=== PATIENT | female | born 1950 | race Hispanic/Latino ===

== ENCOUNTER 2024-12-05 19:15 | Emergency (ER) | payer MEDICARE, MEDICAID ==
[~2024-12-05] VITALS: Ht 162.6 cm; Wt 71.2 kg
--- NOTE | 2024-12-05 19:19 | NUR ---
UA CUP PROVIDED
[2024-12-05 20:01] LABS: BASOPHILS # (AUTO) 0.03 K/uL (0.00-0.20); BASOPHILS % (AUTO) 0.6 % (0.0-5.0); EOSINOPHILS # (AUTO) 0.08 K/uL (0.00-0.70); EOSINOPHILS % (AUTO) 1.7 % (0.0-8.0); HEMATOCRIT 29.4 % (36-48); IMMATURE GRANULOCYTE ABSOLUTE 0.01 K/uL (0-1); LYMPHOCYTES # (AUTO) 1.6 K/uL (1.0-4.8); MEAN CORPUSCULAR HEMOGLOBIN 30.7 pg (27.0-33.0); MEAN CORPUSCULAR VOLUME 90.2 fL (79-99); MONOCYTES # (AUTO) 0.4 K/uL (0.1-1.0); NEUTROPHILS # (AUTO) 2.6 K/uL (1.8-7.7); NEUTROPHILS % (AUTO) 54.5 % (40.0-77.0); PLATELET COUNT (AUTO) 166 K/uL (130-400); RED BLOOD CELL COUNT(AUTO) 3.26 MIL/uL (4.00-5.50); RED CELL DISTRIBUTION WIDTH 12.5 % (11.0-15.5); WHITE BLOOD COUNT (AUTO) 4.8 K/uL (4.8-10.8)
[2024-12-05] MEDS: ketOROlac 15MG/ML VIAL (15MG/ML) IV ONE (20:03)
[2024-12-05] MEDS: 0.9%NACL 1000ML 1,000 ML IV ONE (20:03)
[2024-12-05] MEDS: acetaMINOPHEN 500 MG TABLET PO ONE (20:03)
[2024-12-05 20:13] LABS: CREATININE 1.3 mg/dL (0.5-1.0); POTASSIUM 4.5 mmol/L (3.5-5.1)
--- NOTE | 2024-12-05 20:31 | EKG ---
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
[2024-12-05 20:41] LABS: ADD UA MICROSCOPIC YES; APPEARANCE,URINE CLEAR (CLEAR); BILIRUBIN,URINE NEGATIVE (NEGATIVE); COLOR,URINE COLORLESS (YELLOW); GLUCOSE, URINE (UA) NEGATIVE (NEGATIVE); KETONES,URINE NEGATIVE (NEGATIVE); LEUKOCYTE ESTERASE ,URINE NEGATIVE Leu/uL (NEGATIVE); NITRATE,URINE NEGATIVE (NEGATIVE); PROTEIN,URINE NEGATIVE (NEGATIVE); UROBILINOGEN,URINE 0.2 mg/dL (0.2-1.0)
--- NOTE | 2024-12-05 20:48 | HMCIMG ---
CT ABDOMEN/PELVIS W/O CONTRAST HISTORY: Renal stones COMPARISON: 01/04/2017 TECHNIQUE: Multiple sequential axial images of the abdomen and pelvis were obtained from the dome of the diaphragm through symphysis pubis. Patient was not given contrast through intravenous route. Oral contrast was not given. FINDINGS: No pleural effusion is seen bilaterally. There is no evidence of parenchymal disease or pulmonary nodule of the visualized lower lungs. Degenerative changes of the thoracolumbar spine are present. The heart is not enlarged. The liver measures 16 cm. Post cholecystectomy changes are seen. There is diverticulosis. The liver, spleen, adrenal glands and pancreas are unremarkable. There is no evidence of hydronephrosis bilaterally. No evidence of renal stone is seen. Fecal material is seen in the colon. There are normal size retroperitoneal and mesenteric lymph nodes. No ascites is seen. Atherosclerotic changes are present. Pelvic sidewalls are symmetric bilaterally. Bladder is well distended without wall thickening. IMPRESSION: 1. No acute findings. CT was performed with one or more following dose reduction techniques: automated exposure control, adjustment of the mA and kv according to patient's size, or use of a iterative reconstruction technique.
--- NOTE | 2024-12-05 21:07 | HMCIMG ---
CHEST 1VW HISTORY: Shortness of breath COMPARISON: 01/04/2017 FINDINGS: A frontal projection of the chest was obtained. No acute pulmonary infiltrates is seen. The heart is borderline enlarged. Degenerative changes are seen. Prominent interstitial markings are seen. No evidence of aortic calcification is seen. IMPRESSION: 1. No acute pulmonary infiltrate is seen.
[2024-12-05 21:08] LABS: BACTERIA,URINE RARE /HPF (None Seen); SQUAMOUS EPITHELIAL CELL,UR RARE /HPF (0-2)
[2024-12-05] MEDS ORDERED: MELO-106 PO (22:02)
[2024-12-05 22:03] VITALS: BP 152/62; PULSE 74; RESP 16; TEMP 98.1; O2SAT 99
--- NOTE | 2024-12-05 22:03 | ERN ---
ED Note History of Present Illness Stated Complaint: LEFT FLANK PAIN Chief Complaint: Flank Pain Time Seen by MD: 19:18 Time Seen by Midlevel: 19:18 Dictation: The patient is a 74-year-old female with a history of hypertension, kidney stones who presents to the emergency department with complaints of left flank pain that radiates to the front onset yesterday. Patient denies any trauma, denies any fevers or urinary discomfort. Denies any hematuria. Allergies: Coded Allergies: morphine (Unverified Allergy, Unknown, 12/05/24) Home Meds Active Scripts Meloxicam (Meloxicam) 7.5 Mg Tablet, 1 TAB PO DAILY for 10 Days, #10 TAB 0 Refills Prov:JOSÉ LUIS HAND FLATCAR WHACKER 12/05/24 Past Medical History Past Medical History: Hypertension, Kidney Stone Surgical History: Appendectomy, Hysterectomy, Cholecystectomy, Other, BTL Surgical History Other: LEFT BREAST, BLADDER RN Note Reviewed/Agreed w/PFSH: Yes Review of System Dictation Constitutional: Negative for fever,chills, and weight loss Eyes: Negative for injury, pain,redness, and discharge ENT: Negative for injury,pain or swelling Cardiovascular: Negative for chest pain, palpitations, and edema Respiratory: Negative for shortness of breath, cough, and wheezing, Abdomen/GI: Negative for abdominal pain, nausea, vomiting, diarrhea, and constipation Back: Positive for left flank pain : Negative for injury, bleeding and discharge MS/Extremity: Negative for injury and deformity Skin: Negative for rash, and discoloration Neuro: Negative for headache, weakness, numbness, tingling, and seizure Psych: Negative for suicide ideation, homicidal ideation, and hallucinations Initial Vital Sign VS Vital Signs Date Time Temp Pulse Resp B/P (MAP) Pulse Ox O2 Delivery O2 Flow Rate FiO2 12/05/24 19:17 98.1 71 16 166/79 99 Room Air 12/05/24 19:29 0 21 Physical Exam Dictation Vital Signs reviewed General Appearance: Alert, oriented x 3, no acute distress, well developed, nourished. Head and Face: non-traumatic. Eyes: PERRL, pink conjunctivas, eyelid no trauma, anterior chamber with arcus senilis. Ears: Pinnas intact and no signs of trauma or erythema ear canals clear and no discharge TM no erythema Nose: No discharge, no bleeding. Oropharynx: Mouth normal, tongue pink. pharynx clear,no erythema, tonsils no exudates, no abscesses noted, mucous membrane moist Neck: Supple, non-tender, no thyromegaly, no masses, no JVD, no bruits Breast:Deferred Chest:No tenderness, no crepitus, no paradoxical movement, no retractions Lungs:Clear, well-ventilated, symmetric, no rales, no wheezing, no rhonchi, no stridor, good breath sounds bilaterally Heart: Regular rate, regular rhythm, no murmur, no gallops Vascular: no peripheral edema, dorsalis pedis 3+ bilaterally Abdomen: Soft, positive bowel sounds, nondistended, no guarding, nontender, no rebound, no masses no hepatomegaly, no splenomegaly, no Powell's sign, no hernias. Rectal: Deferred Genital: Deferred Neurological: Normal speech, motor function intact, sensory function intact Musculoskeletal: Neck nontender, full range of motion, back nontender, full range of motion, Extremities: nontender, full range of motion Skin: Color pink, dry, no turgor, no rash, no lacerations, no abrasions, no contusions. Lymphatic: Deferred Results (Laboratory/Radiology) Laboratory/Radiology Laboratory Tests Test 12/05/24 19:22 12/05/24 19:53 Urine Color COLORLESS (YELLOW) Urine Appearance CLEAR (CLEAR) Urine pH 7.0 (5.0-8.0) Urine Specific Nichols 1.005 (1.001-1.031) Urine Protein NEGATIVE mg/dL (NEGATIVE) Urine Glucose (UA) NEGATIVE mg/dL (NEGATIVE) Urine Ketones NEGATIVE mg/dL (NEGATIVE) Urine Occult Blood +- (TRACE) (NEGATIVE) H Urine Nitrate NEGATIVE (NEGATIVE) Urine Bilirubin NEGATIVE mg/dL (NEGATIVE) Urine Urobilinogen 0.2 mg/dL (0.2-1.0) Urine Leukocyte Esterase NEGATIVE Kentrell/uL Urine RBC 2-5 /HPF (0-1) H Urine WBC None /HPF (0-1) Urine Squamous Epithelial Cells RARE /HPF (0-2) Urine Bacteria RARE /HPF (None Seen) White Blood Count 4.8 K/uL (4.8-10.8) Red Blood Count 3.26 MIL/uL (4.00-5.50) L Hemoglobin 10.0 g/dL (12.0-16.0) L Hematocrit 29.4 % (36-48) L Mean Corpuscular Volume 90.2 fL (79-99) Mean Corpuscular Hemoglobin 30.7 pg (27.0-33.0) Mean Corpuscular Hemoglobin Concent 34.0 g/dL (32.0-36.0) Red Cell Distribution Width 12.5 % (11.0-15.5) Platelet Count 166 K/uL (130-400) Mean Platelet Volume 9.5 fL (7.5-10.5) Immature Granulocyte % (Auto) 0.2 % (0-1) Neutrophils (%) (Auto) 54.5 % (40.0-77.0) Lymphocytes (%) (Auto) 34.0 % (21.0-51.0) Monocytes (%) (Auto) 9.0 % (3.0-13.0) Eosinophils (%) (Auto) 1.7 % (0.0-8.0) Basophils (%) (Auto) 0.6 % (0.0-5.0) Neutrophils # (Auto) 2.6 K/uL (1.8-7.7) Lymphocytes # (Auto) 1.6 K/uL (1.0-4.8) Monocytes # (Auto) 0.4 K/uL (0.1-1.0) Eosinophils # (Auto) 0.08 K/uL (0.00-0.70) Basophils # (Auto) 0.03 K/uL (0.00-0.20) Absolute Immature Granulocyte (auto 0.01 K/uL (0-1) Nucleated Red Blood Cells 0.0 % (0.0-0.19) Sodium Level 141 mmol/L (136-145) Potassium Level 4.5 mmol/L (3.5-5.1) Chloride Level 105 mmol/L (101-111) Carbon Dioxide Level 29 mmol/L (21-32) Blood Urea Nitrogen 27 mg/dL (7-18) H Creatinine 1.3 mg/dL (0.5-1.0) H Glomerular Filtration Rate Calc 43 mL/min (>90) Random Glucose 104 mg/dL (70-105) Total Calcium 8.9 mg/dL (8.5-10.1) Total Creatine Kinase 72 U/L (21-232) # Troponin I High Sensitivity 5 ng/L (4-50) Labs Reviewed?: Yes EKG: (+) rhythm (Sinus rhythm) EKG Comment: Date:12/05/2024 Time:2026 Ventricular rate:64 CO interval:227 QRS duration:132 QT/QTc:444 EKG interpretation: Sinus rhythm, no STEMI Reviewed by ED Attending ED Course ED Course Orders Procedure Category Date Status Time Cbc With Differential LAB 12/05/24 Complete 19:33 Urinalysis Profile LAB 12/05/24 Complete 19:33 Ct Abdomen/Pelvis W/O CT 12/05/24 Resulted Contrast 19:33 0.9%Nacl 1000ml (Ns PHA 12/05/24 Complete 1000ml) 20:00 Basic Metabolic Panel LAB 12/05/24 Complete 19:33 Ketorolac PHA 12/05/24 Complete Tromethamine 15mg/Ml 20:00 Acetaminophen 500mg PHA 12/05/24 Complete Tab (Tylenol 500mg T 20:00 Chest 1vw RAD 12/05/24 Resulted 19:33 12 Lead Ekg Tracing- EKG 12/05/24 Complete Technical 19:33 Creatine Kinase, Total LAB 12/05/24 Complete 19:33 Troponin I High LAB 12/05/24 Complete Sensitivity 19:33 Current Medications Medications (Trade) Dose Ordered Sig/[place]o Route PRN Reason Start Time Stop Time Status Last Admin Dose Admin Acetaminophen (TYLenol 500MG TAB) 1,000 mg ONCE ONCE PO 12/05/24 20:00 12/05/24 20:01 DC 12/05/24 20:03 Ketorolac Tromethamine (toRADol) 15 mg ONCE ONCE IV 12/05/24 20:00 12/05/24 20:01 DC 12/05/24 20:03 Sodium Chloride 1,000 ml @ 0 mls/hr ONCE ONCE IV 12/05/24 20:00 12/05/24 20:01 DC 12/05/24 20:03 Vital Signs Date Time Temp Pulse Resp B/P (MAP) Pulse Ox O2 Delivery O2 Flow Rate FiO2 12/05/24 22:03 98.1 74 16 152/62 99 Room Air* 0 21 12/05/24 19:29 98.1 71 16 166/79 99 Room Air* 0 21 12/05/24 19:17 98.1 71 16 166/79 99 Room Air Medical Decision Making MDM The patient is a 74-year-old female with a history of hypertension, kidney stones who presents to the emergency department with complaints of left flank pain that radiates to the front onset yesterday. Patient denies any trauma, denies any fevers or urinary discomfort. Denies any hematuria. CBC showed no leukocytosis, mild normocytic anemia, chemistry showed creatinine of 1.3, no electrolyte imbalance, negative troponin, urinalysis unremarkable, chest x-ray showed no acute infiltrates, CT abdomen and pelvis showed no acute findings. . Pain probably related to musculoskeletal. Patient in no acute distress, nontoxic appearance. Reports she has an appointment tomorrow with PCP. Patient instructed to not miss her appointment. Patient neurovascularly intact. Patient agrees with discharge planning. Differential diagnosis: Kidney stones, pyelonephritis, musculoskeletal pain, acute kidney injury, dehydration Need for hospitalization: Patient does not meet criteria for hospitalization. There are no social concerns with this patient. DX & DISP Disposition: Discharge Departure Impression: Primary Impression: Left flank pain Additional Impressions: Musculoskeletal back pain, CKD (chronic kidney disease) Condition: Stable Scripts Meloxicam (Meloxicam) 7.5 Mg Tablet 1 TAB PO DAILY for 10 Days, #10 TAB 0 Refills Prov: JOSÉ LUIS HAND 12/05/24 Additional Instructions: Your labs are unremarkable. Your CT showed no acute findings. Your pain is probably related to musculoskeletal pain. Follow up with your primary doctor tomorrow. Take medications as prescribed. If symptoms worsen please return to ER. FOLLOW-UP WITH PRIMARY CARE PROVIDER IN 1 TO 2 DAYS. TAKE MEDICATIONS DIRECTED HERE IN THE EMERGENCY ROOM. OKAY TO CONTINUE HOME MEDICATIONS UNLESS OTHERWISE DISCUSSED DURING YOUR VISIT IN THE EMERGENCY ROOM TODAY. RETURN TO YOUR NEAREST EMERGENCY ROOM IF SYMPTOMS WORSEN OR IF THERE IS NO IMPROVEMENT. CALL 911 IF YOU NEED IMMEDIATE ASSISTANCE. TAKE TYLENOL OR MOTRIN [id number] NEEDED AND IF NO CONTRAINDICATIONS ARE PRESENT. INCREASE ORAL HYDRATION. A WOUND CULTURE OR URINE CULTURE WAS ORDERED HERE IN THE EMERGENCY ROOM DEPARTMENT PLEASE FOLLOW-UP WITH PRIMARY CARE PROVIDER AND ADVISE THEM TO GET REPEAT PORTS FROM OUR FACILITY. IF YOU HAD ANY MADY WRAP/SPLINTS THAT WERE APPLIED HERE, PLEASE DO NOT REMOVE THEM UNTIL YOU SEE YOUR PRIMARY CARE OR SPECIALTY. Referrals: SELF,REFERRAL (PCP) Time of Disposition: 22:00 I have reviewed the case, and I agree with, Diagnosis and Plan JOSÉ LUIS HAND December 05, 2024 22:03 ERICK MILLER DO December 06, 2024 03:28
== END 2024-12-05 22:05 | disposition home or self-care (01) ==
LOC: EDH 19:15
DX: R10.9 Unspecified abdominal pain (principal); M54.50 Low back pain, unspecified; I12.9 Hypertensive chronic kidney disease with stage 1 through stage 4 chronic kidney disease, or unspecified chronic kidney disease; N18.9 Chronic kidney disease, unspecified; Z79.1 Long term (current) use of non-steroidal anti-inflammatories (NSAID); Z88.5 Allergy status to narcotic agent; Z90.49 Acquired absence of other specified parts of digestive tract; Z90.710 Acquired absence of both cervix and uterus
CPT/HCPCS: 99285; 74176; 96374; 71045; 82550; 84484; 80048; 85025; 81001; 36415; 93005; J1885; J7030